=== PATIENT | female | born 1965 | race Caucasian/White ===

== ENCOUNTER 2024-02-13 09:33 | Day surgery (SDC) | payer OTHER ==
[2024-02-08 08:27] VITALS: BP 124/90
[~2024-02-13] VITALS: Ht 160 cm; Wt 68.2 kg
[~2024-02-13 09:33] MED LIST: IBLOOD GLUCOSE TEST STRIP 1 EA TEST VI PRN; LACTATED RINGER'S 1,000 ML IV SCH; LEVOTHYROXINE88 MC1 PO; LIDOCAINE HCL 1% 5 ML SDV INJ ONE; LISINOPRIL-HCT1 EAC1 PO; NORVASC10 MG PO
[2024-02-13 10:03] VITALS: BP 110/77
[2024-02-13] MEDS ORDERED: LIDOCAINE HCL 2% 5 ML SDV ONE (11:56)
[2024-02-13] MEDS ORDERED: propofoL 200 MG/20 ML VIAL ONE ×2 (11:56→12:14)
--- NOTE | 2024-02-13 13:01 | NUR ---
02/13/24 1301 Mando Stovall 1252: PT ARRIVED TO PACU VIA STRETCHER. REPORTS TAKEN FROM ALIE QUEVEDO. PT ON 2L NC. PT AWAKE AND ASKING QUESTIONS. DENIES NAUSEA OR PAIN AT THIS TIME 1257: PT TITRATED TO ROOM AIR. SATS IN THE MID 90'S. PT REMAINS AWAKE AND TALKING.
[2024-02-13 13:19] VITALS: BP 135/75
--- NOTE | 2024-02-14 11:05 | OR ---
[facility] [address] [place], [place] [address] Signed DATE OF OPERATION: 02/13/2024 SURGEON: Nadia Burnham MD PREOPERATIVE DIAGNOSES: 1. Colon screening. 2. Family history of colon cancer in mother. POSTOPERATIVE DIAGNOSIS: Multiple polyps (transverse colon polyp x1, sigmoid polyp x3, multiple rectosigmoid and low rectal polyps). PROCEDURE: Total colonoscopy to cecum with cold morcellation polypectomy x6 and cold snare polypectomy x4. ANESTHESIA: Intravenous sedation; propofol, Jane Mirlande, NEGATIVE RESTORER. INDICATION: This 58-year-old white woman is a patient of RANJAN Hudson. She has family history of colon cancer in her mother. She has never had a prior colon evaluation. She has no current symptoms of bleeding, diarrhea, or constipation. She understands the risk of colonoscopy including but not limited to bleeding, infection, and perforation and wished to proceed. FINDINGS: The prep was excellent. Passage of the scope to the cecum was challenging on the basis of the redundant colon, but ultimately full intubation of the cecum was accomplished. She had numerous polyps, all of them small and at least half probably hyperplastic. This included transverse colon, sigmoid, low sigmoid, rectosigmoid, and low rectum. DESCRIPTION OF PROCEDURE: The patient was brought to the endoscopy suite and placed in the lateral decubitus position, given intravenous sedation to the point of slurred speech and nystagmus with full cardiopulmonary monitoring. She had an advance ASA category on the basis of drinking a six pack of beer on a daily basis. Digital rectal examination was performed and found to be normal. An Olympus video colonoscope was passed in the rectum and manipulated throughout the colon. Various Electronically Signed By: NADIA BURNHAM MD 02/14/24 1105 PATIENT NAME: BRITTNEY ALVARADO OPERATIVE REPORT DATE OF : 63 REPORT #: [id number] PHYSICIAN: NADIA BURNHAM MD PCP: NIKOS SIMON NP REPORT IS CONFIDENTIAL AND NOT TO BE RELEASED WITHOUT AUTHORIZATION [facility] [address] [place], [place] [address] Signed maneuvers were required to ultimately intubate the cecum as the colon was quite redundant. The ileocecal valve and appendiceal orifice were normal. Scope was withdrawn from that point and examination undertaken ultimately showing a small transverse colon adenomatous appearing polyp, which was excised with cold morcellation technique. Further withdrawal showed no sign of abnormality until the sigmoid where a small polyp was noted. It was excised with cold snare technique and two others in the low sigmoid also excised with snare technique. Further withdrawal showed several clustered polyps probably hyperplastic in the rectosigmoid. They were excised with cold morcellation technique and in the low to mid rectum several other small polyps also excised with cold morcellation technique. Retroflexed view of the rectum was otherwise normal. Scope was removed and the patient was taken to the recovery room in good condition. CONCLUDING DIAGNOSIS: Multiple polyps, some hyperplastic and several probably adenomatous. PLAN: Recommend repeat colonoscopy in two years or so, sooner if symptoms should develop. She will return to the ongoing care of RANJAN Hudson. MD RICHY Sy/TONIO /[id number] cc: RANJAN Hudson Copies: ~ Electronically Signed By: NADIA BURNHAM MD 02/14/24 1105 PATIENT NAME: BRITTNEY ALVARADO OPERATIVE REPORT DATE OF : 63 REPORT #: [id number] PHYSICIAN: NADIA BURNHAM MD PCP: NIKOS SIMON NP REPORT IS CONFIDENTIAL AND NOT TO BE RELEASED WITHOUT AUTHORIZATION
--- NOTE | 2024-02-15 22:15 | PATH ---
[facility] [address] [facility] [place], [place] [address] Signed SPECIMEN(S): A TRANSVERSE COLON POLYP SPECIMEN(S): B SIGMOID POLYP SPECIMEN(S): C SIGMOID POLYP SPECIMEN(S): D RECTOSIGMOID POLYP SPECIMEN(S): E RECTOSIGMOID POLYPS SPECIMEN(S): F RECTAL POLYPS SPECIMEN SOURCE: A. TRANSVERSE COLON POLYP B. SIGMOID POLYP C. SIGMOID POLYP D. RECTOSIGMOID POLYP E. RECTOSIGMOID POLYPS F. RECTAL POLYPS CLINICAL HISTORY: Family history of colon cancer FINAL PATHOLOGIC DIAGNOSIS: A. Colon, transverse, polyp, biopsy: - Sessile serrated polyp. - An additional fragment of colonic epithelium demonstrates a benign intramucosal lymphoid nodule. - Other colonic epithelial fragments are within normal limits. - No evidence of malignancy. B. Colon, sigmoid, polyp, biopsy: - Benign colonic mucosa with prominent intramucosal lymphoid aggregate, 1 fragment. - Hyperplastic polyp, 1 fragment. - There is no evidence of neoplasia. C. Colon, sigmoid, polyp, biopsy: - Benign colonic mucosa with prominent intramucosal lymphoid aggregate, 1 fragment. - Hyperplastic polyp, 1 fragment. - There is no evidence of neoplasia. D. Colon, rectosigmoid, polyp, biopsy: - Hyperplastic polyp. E. Colon, rectosigmoid, polyps, biopsy: - Benign colonic mucosa with prominent intramucosal lymphoid aggregates, multiple fragments. - Hyperplastic polyp, 2 fragments. PATIENT NAME: RHETT ALVARADOSara [facility] DATE OF : 63 REPORT #: [id number] PHYSICIAN: CASEY BROWN PCP: NIKOS SIMON NP REPORT IS CONFIDENTIAL AND NOT TO BE RELEASED WITHOUT AUTHORIZATION [facility] [address] [place], [place] [address] Signed - No evidence of neoplasia. F. Rectum, polyps, biopsy: - Hyperplastic polyps (multiple). COMMENT: A. The sections through the colonic polyp show the presence of serrated glands lined by cells that histologically more closely resemble hyperplastic epithelium than adenomatous epithelium. Unlike traditional hyperplastic polyps the serrated appearance extends to the base of the mucosa. No dysplasia or malignancy is identified. This polyp type can be seen in hyperplastic (serrated) polyposis syndrome. Recent data suggest that patients with sessile serrated polyps, if incompletely excised or associated with multiple similar polyps, may benefit from a shorter surveillance interval (e.g., 1-2 years) since there is now compelling evidence that these lesions often contain a methylator phenotype. References: Ifeanyi DC, Clyde JR, Monique-Carlos C, Lane KP. Serrated polyps of the large intestine: a morphologic and molecular review of an evolving concept. Am J Clin Pathol. 2005;124:380-91. B, C. Sections of colonic tissue demonstrate a benign intramucosal lymphoid aggregate. Intramucosal lymphoid aggregates can sometimes appear as polyps endoscopically. They have no clinical significance. There is no evidence of dysplasia or malignancy. D. There is no evidence of dysplasia or malignancy. E. Examination of sections from three different levels of the tissue block discloses the presence of benign intramucosal lymphoid aggregates. Intramucosal lymphoid aggregates can sometimes appear as polyps endoscopically. They have no clinical significance. There is no evidence of dysplasia or malignancy. F. There is no evidence of dysplasia or malignancy. K MICROSCOPIC EXAMINATION: Histologic sections of all submitted blocks are examined by light microscopy. These findings, together with the gross examination, support the pathologic diagnosis. GROSS DESCRIPTION: A. The specimen, labeled and designated "Adriaansen, transverse colon polyp," is received in formalin and consists of five ballard soft tissue fragments, ranging from 0.2-0.3 cm. Entirely submitted in PATIENT NAME: BRITTNEY ALVARADO PATHOLOGY DATE OF : 63 REPORT #: [id number] PHYSICIAN: CASEY BROWN PCP: NIKOS SIMON NP REPORT IS CONFIDENTIAL AND NOT TO BE RELEASED WITHOUT AUTHORIZATION [facility] [address] [place], [place] [address] Signed (A1). B. The specimen, labeled and designated "Adriaansen, sigmoid polyp," is received in formalin and consists of two ballard soft tissue fragments, ranging from 0.2-0.3 cm. Entirely submitted in (B1). C. The specimen, labeled and designated "Adriaansen, sigmoid polyp #2," is received in formalin and consists of two ballard soft tissue fragments, ranging from 0.2-0.3 cm. Entirely submitted in (C1). D. The specimen, labeled and designated "Adriaansen, rectosigmoid polyp," is received in formalin and consists of one ballard soft tissue fragment, 0.5 cm. Entirely submitted in (D1). E. The specimen, labeled and designated "Veto, rectosigmoid polyp, multiple," is received in formalin and consists of eight ballard soft tissue fragments, ranging from 0.2-0.5 cm. Entirely submitted in (E1). F. The specimen, labeled and designated "Adriaansen, rectal polyps, multiple," is received in formalin and consists of multiple ballard soft tissue fragments, 0.1-0.3 cm. Entirely submitted in (F1). VB (under the direct supervision of a pathologist) The Gross Description was prepared using a voice recognition system. The report was reviewed for accuracy; however, sound-alike word errors, addition and/or deletions may occur. If there is any question about this report, please contact Client Services. ADDITIONAL NOTES: Immunohistochemical and/or in situ hybridization studies if performed in this case included appropriate positive controls that reacted as expected. This test was developed and its performance characteristics determined by [facility]. It has not been cleared or approved by the U.S. Food and Drug Administration. The FDA has determined that such clearance or approval is not necessary. This test is used for clinical purposes. It should not be regarded as investigational or for research. [facility] is certified under the Clinical Laboratory Improvement Amendments of 1988 (CLIA) as qualified to perform high complexity clinical laboratory testing. PERFORMING LABORATORY: Technical component was performed by [facility], [address] [place] [id number] (CLIA# [id number]). Professional interpretation was performed by [facility], [address] [place] [id number] (CLIA#:[id number]). PATIENT NAME: BRITTNEY ALVARADO PATHOLOGY DATE OF : 63 REPORT #: [id number] PHYSICIAN: CASEY PATHOLOGY PCP: NIKOS SIMON NP REPORT IS CONFIDENTIAL AND NOT TO BE RELEASED WITHOUT AUTHORIZATION [facility] [address] [facility] [place], [place] [address] Signed Diagnostician: Siddharth Perdomo MD Pathologist Electronically Signed 02/15/2024 Copies: ~ PATIENT NAME: BRITTNEY ALVARADO PATHOLOGY DATE OF : 63 REPORT #: [id number] PHYSICIAN: CASEY BROWN PCP: NIKOS SIMON NP REPORT IS CONFIDENTIAL AND NOT TO BE RELEASED WITHOUT AUTHORIZATION
== END 2024-02-13 13:30 | disposition home or self-care (01) ==
LOC: OPS 09:33 → DSVR 09:33 → DS 10:00 → OPS 10:00
PROVIDERS: ATTEND Surgery
PROC: 0DBL8ZX Excision of Transverse Colon, Via Natural or Artificial Opening Endoscopic, Diagnostic (ICD-10-PCS; 2024-02-13)
PROC: 0DBN8ZX Excision of Sigmoid Colon, Via Natural or Artificial Opening Endoscopic, Diagnostic (ICD-10-PCS; 2024-02-13)
PROC: 0DBP8ZX Excision of Rectum, Via Natural or Artificial Opening Endoscopic, Diagnostic (ICD-10-PCS; principal; 2024-02-13 11:15)
DX: Z12.11 Encounter for screening for malignant neoplasm of colon (principal); D12.3 Benign neoplasm of transverse colon; K63.5 Polyp of colon; K62.1 Rectal polyp; F10.20 Alcohol dependence, uncomplicated; I10 Essential (primary) hypertension; E03.9 Hypothyroidism, unspecified; Z80.0 Family history of malignant neoplasm of digestive organs
CPT/HCPCS: 00811; 88305; J2001; J2704; J7121